=== PATIENT | male | born 1965 | race Caucasian/White ===

== ENCOUNTER → 2022-04-27 | Outpatient (CLI) | payer MEDICARE, OTHER | LOC: HEART CORB 09:11 | DX: R94.31 Abnormal electrocardiogram [ECG] [EKG] (principal); I25.10 Atherosclerotic heart disease of native coronary artery without angina pectoris; R00.2 Palpitations; R00.0 Tachycardia, unspecified; I07.1 Rheumatic tricuspid insufficiency ==